=== PATIENT | male | born 1955 | race Caucasian/White ===

== ENCOUNTER → 2024-08-21 | Outpatient (CLI) | payer MEDICARE ==
[2024-08-21 17:22] LABS: BASOPHILS ABSOLUTE AUTO 0.11 K/mm3 (0.00-0.23); BASOPHILS PERCENT AUTO 1 % (0-2); EOSINOPHILS ABSOLUTE AUTO 0.18 K/mm3 (0.00-0.68); EOSINOPHILS PERCENT AUTO 1 % (0-6); Hematocrit 43.2 % (37.0-53.0); Hemoglobin 14.1 g/dL (13.5-17.5); IMMATURE GRAN ABSOLUTE AUTO 0.07 K/mm3 (0.00-0.10); IMMATURE GRAN PERCENT AUTO 1 % (0-1); LYMPHOCYTES ABSOLUTE AUTO 0.78 K/mm3 (0.84-5.20); LYMPHOCYTES PERCENT AUTO 5 % (21-46); MONOCYTES ABSOLUTE AUTO 1.52 K/mm3 (0.16-1.47); MONOCYTES PERCENT AUTO 10 % (4-13); Mean Corpuscular HGB 31.4 pg (26.0-34.0); Mean Corpuscular HGB Conc 32.6 g/dL (31.5-36.5); Mean Corpuscular Volume 96 fL (80-100); Mean Platelet Volume 9.6 fL (9.1-12.4); NEUTROPHILS ABSOLUTE AUTO 12.07 K/mm3 (1.96-9.15); NEUTROPHILS PERCENT AUTO 82 % (41-73); Platelet Count 390 K/mm3 (150-400); RDW Coefficient Variation 12.7 % (11.7-14.2); RDW Standard Deviation 44.8 fL (35.1-46.3); Red Blood Cell Count 4.49 M/mm3 (4.30-5.90); White Blood Cell Count 14.73 K/mm3 (4.00-11.30)
[2024-08-21 18:02] LABS: Albumin, Blood 3.4 g/dL (3.4-5.0); Albumin/Globulin Ratio 0.9 (0.8-1.8); Bilirubin, Total 0.4 mg/dL (0.1-1.0); Bun/Creatinine Ratio 12.9 (12.0-20.0); Calcium, Blood 8.8 mg/dL (8.5-10.1); Creatinine, Blood 1.78 mg/dL (0.60-1.20); Globulin, Blood 3.7 g/dL (2.2-4.0); Potassium, Blood 4.6 mmol/L (3.5-5.5); Total Protein, Blood 7.1 g/dL (6.4-8.2)
== END ==
LOC: LAB SHORT 12:00 → LAB 12:00
PROVIDERS: Nurse Practitioner Family
DX: R59.0 Localized enlarged lymph nodes (principal); R30.0 Dysuria
CPT/HCPCS: 80053; 85025; 85651; 87086

== ENCOUNTER 2024-11-06 11:26 | Emergency (ER) | payer MEDICARE, OTHER ==
[~2024-11-06] VITALS: Ht 165.1 cm; Wt 72.6 kg
[2024-11-06] MEDS ORDERED: Ketorolac Tromethamine 30mg Vial IV ONE (12:05)
[2024-11-06 12:08] LABS: Source, Urine Clean Catch
[2024-11-06] MEDS ORDERED: NS 1,000 ML IV SCH (12:10)
[2024-11-06] MEDS ORDERED: CARBIDOPA-LEVO1 EA17 PO (12:11)
[2024-11-06] MEDS ORDERED: AMLODIPINE BESYL5 MG PO (12:11)
[2024-11-06] MEDS ORDERED: LISI20 PO (12:11)
[2024-11-06] MEDS ORDERED: FLUTICASONE-SA1 EAC8 INH (12:11)
[2024-11-06] MEDS ORDERED: QUETIAPINE FUM10011 PO (12:12)
[2024-11-06] MEDS ORDERED: ALBU90OI INH (12:12)
[2024-11-06] MEDS ORDERED: PREGABALIN75 MG PO (12:12)
[2024-11-06 12:14] LABS: Bilirubin, Urine Neg (Neg); Blood, Urine 3+ (Neg); Glucose Qualitative, Urine Neg (Neg); Ketones, Urine Neg (Neg); Leukocyte Esterase, Urine Neg (Neg); Nitrite, Urine Neg (Neg); Protein, Urine 2+ (Neg); Urobilinogen, Urine NORM (Normal)
[2024-11-06 12:14] LABS: BASOPHILS ABSOLUTE AUTO 0.06 K/mm3 (0.00-0.23); BASOPHILS PERCENT AUTO 1 % (0-2); EOSINOPHILS ABSOLUTE AUTO 0.21 K/mm3 (0.00-0.68); EOSINOPHILS PERCENT AUTO 2 % (0-6); Hematocrit 45.9 % (37.0-53.0); Hemoglobin 15.5 g/dL (13.5-17.5); IMMATURE GRAN ABSOLUTE AUTO 0.04 K/mm3 (0.00-0.10); IMMATURE GRAN PERCENT AUTO 0 % (0-1); LYMPHOCYTES ABSOLUTE AUTO 0.87 K/mm3 (0.84-5.20); LYMPHOCYTES PERCENT AUTO 8 % (21-46); MONOCYTES ABSOLUTE AUTO 1.02 K/mm3 (0.16-1.47); MONOCYTES PERCENT AUTO 9 % (4-13); Mean Corpuscular HGB 31.3 pg (26.0-34.0); Mean Corpuscular HGB Conc 33.8 g/dL (31.5-36.5); Mean Corpuscular Volume 93 fL (80-100); NEUTROPHILS ABSOLUTE AUTO 9.01 K/mm3 (1.96-9.15); NEUTROPHILS PERCENT AUTO 80 % (41-73); Platelet Count 295 K/mm3 (150-400); RDW Coefficient Variation 13.9 % (11.7-14.2); RDW Standard Deviation 47.4 fL (35.1-46.3); Red Blood Cell Count 4.95 M/mm3 (4.30-5.90); White Blood Cell Count 11.21 K/mm3 (4.00-11.30)
[2024-11-06 12:28] LABS: Magnesium, Blood 2.4 mg/dL (1.6-2.4)
[2024-11-06 12:32] LABS: Albumin, Blood 3.7 g/dL (3.4-5.0); Albumin/Globulin Ratio 0.8 (0.8-1.8); Bilirubin, Total 0.6 mg/dL (0.1-1.0); Bun/Creatinine Ratio 12.3 (12.0-20.0); Calcium, Blood 9.5 mg/dL (8.5-10.1); Creatinine, Blood 1.71 mg/dL (0.60-1.20); Globulin, Blood 4.5 g/dL (2.2-4.0); Potassium, Blood 4.7 mmol/L (3.5-5.5); Total Protein, Blood 8.2 g/dL (6.4-8.2)
[2024-11-06 12:39] LABS: Appearance, Urine Hazy (Clear); Color, Urine Yellow (P-Yellow)
[2024-11-06 12:40] LABS: Bacteria Not Seen /hpf; Squamous Epithelial Cells Rare /hpf (Few); White Blood Cells, Urine 0-2 /hpf (0-5)
[2024-11-06] MEDS ORDERED: Ondansetron HCl 2 MG / ML 2ML Vial IV ONE (13:00)
[2024-11-06] MEDS ORDERED: Morphine Sulfate 4 MG/1 ML Injection IV ONE (13:00)
[2024-11-06] MEDS ORDERED: Amoxicillin/Clavulanate K 875 MG Tab PO ONE (13:05)
[2024-11-06] MEDS ORDERED: ONDA4ODT MM (13:15)
[2024-11-06] MEDS ORDERED: AMOCLA875 PO (13:15)
[2024-11-06] MEDS ORDERED: Morphine Sulfat15 MG PO (13:15)
[2024-11-06 13:37] VITALS: BP 146/85
== END 2024-11-06 13:55 | disposition home or self-care (01) ==
LOC: ER 11:26
PROVIDERS: Physician Assistant; Student in an Organized Health Care Education/Training Program
DX: K57.32 Diverticulitis of large intestine without perforation or abscess without bleeding (principal); G20.A1 Parkinson's disease without dyskinesia, without mention of fluctuations; Z85.528 Personal history of other malignant neoplasm of kidney; Z90.5 Acquired absence of kidney; Z79.899 Other long term (current) drug therapy
CPT/HCPCS: 74177; 80053; 81001; 83690; 83735; 85025; 93005; 93010; 96374; 96375; 99284-25; A9270; J1885; J2270; J2405; J7030; Q9967

== ENCOUNTER → 2025-01-14 | Outpatient (CLI) | payer MEDICARE, OTHER ==
[~2025-01-14] MED LIST: ALBU90OI INH; AMLODIPINE BESYL5 MG PO; AMOCLA875 PO; CARBIDOPA-LEVO1 EA17 PO; FLUTICASONE-SA1 EAC8 INH; LISI20 PO; Morphine Sulfat15 MG PO; ONDA4ODT MM; PREGABALIN75 MG PO; QUETIAPINE FUM10011 PO
[2025-01-14 20:14] LABS: Albumin, Blood 3.5 g/dL (3.4-5.0); Albumin/Globulin Ratio 0.9 (0.8-1.8); Bilirubin, Total 0.4 mg/dL (0.1-1.0); Calcium, Blood 8.9 mg/dL (8.5-10.1); Creatinine, Blood 1.73 mg/dL (0.60-1.20); Globulin, Blood 3.7 g/dL (2.2-4.0); Total Protein, Blood 7.2 g/dL (6.4-8.2)
== END ==
LOC: LAB SHORT 16:04 → LAB 16:04
PROVIDERS: Nurse Practitioner Family
DX: I12.9 Hypertensive chronic kidney disease with stage 1 through stage 4 chronic kidney disease, or unspecified chronic kidney disease (principal); N18.32 Chronic kidney disease, stage 3b
CPT/HCPCS: 80053